=== PATIENT | male | born 1980 | race Caucasian/White ===

== ENCOUNTER 2018-02-14 06:41 | Day surgery (SDC) | payer OTHER ==
[2018-01-15 14:20] VITALS: BMI 27.8
[2018-02-14] MEDS ORDERED: VANCOMYCIN 1,000 MG VIAL (RESTRICTED TO ID ONLY) ONE (07:05)
[2018-02-14] MEDS ORDERED: KETOROLAC TROMETHAMINE 30 MG/1 ML VIAL ONE (07:13)
[2018-02-14] MEDS ORDERED: TRANEXAMIC ACID 1000 MG/10 ML VIAL ONE ×2 (07:13→09:18)
[2018-02-14] MEDS ORDERED: ONDANSETRON 4 MG/2 ML VIAL ONE (07:13)
[2018-02-14] MEDS ORDERED: DEXAMETHASONE SOD PHOSPHATE 4 MG/1 ML VIAL ONE (07:13)
[2018-02-14] MEDS ORDERED: ceFAZolin SODIUM 1 GM VIAL ONE (07:13)
[2018-02-14] MEDS ORDERED: EPINEPHrine 1:1,000 1 MG/1 ML - 30ML VIAL (INJECTION) ONE (07:15)
[2018-02-14] MEDS ORDERED: PROPOFOL 20 ML ONE ×3 (07:25→09:20)
[2018-02-14] MEDS ORDERED: BUPIVACAINE LIPOSOME/PF (EXPAREL) 266 MG/20 ML VIAL ONE (07:26)
[2018-02-14] MEDS ORDERED: MIDAZOLAM HCL 2 MG/2 ML SINGLE DOSE VIAL ONE (07:26)
[2018-02-14] MEDS ORDERED: fentaNYL CITRATE 250 MCG/5 ML VIAL ONE (07:26)
[2018-02-14] MEDS ORDERED: SUCCINYLCHOLINE CHLORIDE 200 MG/10 ML VIAL ONE (07:52)
[2018-02-14] MEDS ORDERED: ePHEDrine SULFATE 50 MG/1 ML AMPULE ONE (08:09)
[2018-02-14] MEDS ORDERED: oxyCODONE HCL 5 MG TABLET PO PRN ×2 (08:36)
[2018-02-14] MEDS ORDERED: ONDANSETRON 4 MG/2 ML VIAL IVPUSH PRN (08:36)
[2018-02-14] MEDS ORDERED: LACTATED RINGERS SOLUTION 1,000 ML IV SCH (08:45)
--- NOTE | 2018-02-14 09:46 | OP ---
Operative Note - Note: Operative Date: 02/14/18 Pre-Operative Diagnosis: Left knee ACL tear Operation: Left Knee ACLR Auto BPTB Post-Operative Diagnosis: Same as Pre-op Surgeon: Al Barros Patient Service Rep: Isiah Forrest Anesthesiologist/CORE OVEN TENDER: Jhonathan Iqbal Anesthesia: General Operative Report Dictated: Yes
--- NOTE | 2018-02-14 09:46 | DS ---
Physical Examination Vital Signs: Vital Signs Temperature 97.8 F 02/14/18 07:05 Pulse Rate 73 02/14/18 07:05 Respiratory Rate 16 02/14/18 07:05 Blood Pressure 139/94 02/14/18 07:05 O2 Sat by Pulse Oximetry (%) 97 02/14/18 07:05 Discharge Summary Reason For Visit: ANTERIOR CRUCIATE LIGAMENT TEAR LEFT KNEE Condition: Good - Instructions Diet, Activity, Other Instructions: Post Operative Instructions: ACL Reconstruction Dr. Al Barros 1. Pain following an ACL reconstruction is variable and can be significant. Some patients will have more pain than others. You have been provided with a prescription for medication that contains a narcotic. You are not allowed to drive while on this medication. You should also take Tylenol (Acetaminophen) when taking the pain medication. Feel free to take medications such as Ibuprofen or Naprosyn in addition to the pain medicine if you do not have any problems with the NSAID class of medications. DO NOT DRINK WHILE ON THESE MEDICATIONS!! TAKE ASPIRIN 81 mg TWICE A DAY (STARTING TONIGHT) FOR TWO WEEKS FOR BLOOD CLOT PREVENTION. 2. You should not remove the bandages until seen in the office!! . You may shower in 2 days. You are not allowed to bathe or go swimming until the sutures are removed. Put band-aids on the sutures after your shower and do not put any creams or lotions over the incisions. 3. You are allowed to put all your weight on the leg and YOU CAN bend your knee , however, you MUST USE CRUTCHES for assistance. 4. Getting the knee straight is your most important goal during the first 72 hours following an ACL reconstruction. Try not to lie down with a pillow under your knee. Instead the pillow should be under your ankle, thus allowing you to push your knee straight down into the bed. This is a very important milestone to achieve before your first post-surgery visit with me. 5. Swelling around the knee is normal following an ACL reconstruction. 6. The area around the knee and along the front of your ferrara will also become swollen and black and blue. 7. Apply ice to the knee for 15 min every hour or so. You may continue this for as many days as you like. 8. Please call the office to schedule a visit to have your sutures removed. 9. If for any reason you believe you may have an infection or are concerned, please feel free to call me. I can be reached through our office number 24 hours a day. 10. Please call our office with any questions; we will review the surgical findings during your post operative visit. Disposition: HOME - Home Medications Comprehensive Discharge Medication List: Ambulatory Orders NK [No Known Home Medication] 01/15/18
--- NOTE | 2018-02-14 10:14 | SURG ---
Surgery Residential Recycle Driver Note Residential Recycle Driver: Isiah Forrest PA-C Date of Service: 02/14/18 Diagnosis: Left knee ACL tear Procedure: Left Knee ACL Reconstruction with auto BPTB I was present for the entirety of the operative procedure. For further detail, please refer to operative report. Visit type - Case Type Case Type: Scheduled - New patient This patient is new to me today: Yes Date on this admission: 02/14/18
[2018-02-14] MEDS ORDERED: oxyCODONE HCL 5 MG TABLET ONE (11:39)
[2018-02-14 13:25] VITALS: TEMP 98.2
[2018-02-14 14:00] VITALS: PULSE 65
[2018-02-14 14:05] VITALS: BP 124/72
--- NOTE | 2018-02-19 16:26 | PATH ---
Surgical Pathology Report Patient Name: FRANKIE EVERETT [facility]. Rec. #: [id number] /Age/Gender: 1980 (Age: 37) / M Account: [id number] Location: [facility] AM[facility]UL[facility] Taken: 02/14/2018 Received: 02/14/2018 Reported: 02/19/2018 Physicians: Al Barros M.D. Specimen(s) Received LEFT KNEE SHAVINGS Clinical History Left knee ACL tear Final Diagnosis KNEE, LEFT, ARTHROSCOPIC SHAVINGS: FIBROSYNOVIAL TISSUE, FIBROCOLLAGENOUS TISSUE AND BONE. Electronically Signed Disha Chen M.D. Gross Description Received in formalin, labeled "left knee shavings," is a 3.0 x 3.0 x 0.3 cm. aggregate of yeung-yellow soft tissue fragments. A labor union business representative portion is submitted in one cassette. 02/17/201802/17/2018
== END 2018-02-14 12:40 | disposition home or self-care (01) ==
LOC: FASU 06:41
PROVIDERS: ATTEND Orthopaedic Surgery
PROC: 0MRP47Z Replacement of Left Knee Bursa and Ligament with Autologous Tissue Substitute, Percutaneous Endoscopic Approach (ICD-10-PCS; principal; 2018-02-14 07:30)
DX: S83.512A Sprain of anterior cruciate ligament of left knee, initial encounter (principal); M25.362 Other instability, left knee; X58.XXXA Exposure to other specified factors, initial encounter; Y93.9 Activity, unspecified; Y92.9 Unspecified place or not applicable
CPT/HCPCS: 88304-TC; 94760; 97116-GP